=== PATIENT | female | born 1970 | race Caucasian/White ===

== ENCOUNTER 2017-01-04 11:13 | Outpatient (CLI) | payer BC ==
--- NOTE | 2017-01-04 13:15 | MMO ---
BILATERAL SCREENING MAMMOGRAM: DATE: 01/04/17 HISTORY: 46-year-old female for screening mammography. COMPARISON: 10/14/15, 10/07/14. FINDINGS: Bilateral MLO and CC views of the breasts show scattered fibroglandular breast tissue. There is no e vidence of suspicious mass, suspicious cluster of microcalcifications, or area of architectural dist ortion. There is focal asymmetric increased density in the upper outer aspect of the right breast, s table. Interpretation of this mammogram was performed with the assistance of computer-aided detection. IMPRESSION: BIRADS 2: Benign Finding(s) Annual screening mammography is recommended. POS: [facility]
== END 2017-01-04 11:14 | disposition home or self-care (01) ==
LOC: SCSMAMMO 11:13
PROVIDERS: ATTEND Obstetrics & Gynecology
DX: Z12.31 Encounter for screening mammogram for malignant neoplasm of breast (principal)
CPT/HCPCS: 77067; G0202

== ENCOUNTER 2018-03-15 15:59 | Outpatient (CLI) | payer OTHER ==
--- NOTE | 2018-03-15 18:45 | MRI ---
MRI CERVICAL SPINE NONCONTRAST: 03/15/18 HISTORY: Neck pain with radiculopathy. FINDINGS: There is straightening of the normal lordotic curvature. Vertebral body heights are maintained. Bone marrow signal is within normal limits. C2-3, C3-4, C4-5: Central canal and neural foramina are patent. C5-6: Small posterior central focal disc protrusion, contacting but not significantly compressing the right side of the spinal cord. No abnormal signal within the cord. Neural foramina are patent. C6-7, C7-T1: Central canal and neural foramina are patent. IMPRESSION: Small focal posterior disc protrusion at the C5-6 level without spinal cord or nerve root compression . POS: [facility]
== END 2018-03-15 16:00 | disposition home or self-care (01) ==
LOC: TBSIIMAG 15:59
PROVIDERS: ATTEND Chiropractor
DX: M50.122 Cervical disc disorder at C5-C6 level with radiculopathy (principal)
CPT/HCPCS: 72141

== ENCOUNTER 2018-09-20 11:35 | Outpatient (CLI) | payer OTHER ==
--- NOTE | 2018-09-20 13:45 | MMO ---
Bilateral MAMMO Bilat Screen [facility]. CLINICAL HISTORY: Patient is 47 years old and is seen for screening. The patient has the following family history of breast cancer: maternal aunt, malignant (generic). The patient has a history of bladder cancer at age 37. VIEWS: The views performed were: bilateral craniocaudal and bilateral mediolateral oblique. FILMS COMPARED: The present examination has been compared to prior imaging studies performed at [facility] on 10/07/2014, 10/14/2015 and 01/04/2017, and at [facility] on 10/08/2014. This study has been interpreted with the assistance of computer-aided detection. MAMMOGRAM FINDINGS: The breasts are heterogeneously dense, which could obscure a lesion on mammography. There are no suspicious masses, suspicious calcifications, or new areas of architectural distortion. IMPRESSION: THERE IS NO MAMMOGRAPHIC EVIDENCE OF MALIGNANCY. A ROUTINE FOLLOW-UP MAMMOGRAM IN 1 YEAR IS RECOMMENDED. ACR BI-RADS Category 1 - Negative MAMMOGRAPHY NOTE: 1. A negative mammogram report should not delay a biopsy if a dominant of clinically suspicious mass is present. 2. Approximately 10% to 15% of breast cancers are not detected by mammography. 3. Adenosis and dense breasts may obscure an underlying neoplasm.
== END 2018-09-20 11:36 | disposition home or self-care (01) ==
LOC: SCSMAMMO 11:35
PROVIDERS: ATTEND Obstetrics & Gynecology
DX: Z12.31 Encounter for screening mammogram for malignant neoplasm of breast (principal); Z80.3 Family history of malignant neoplasm of breast; Z85.51 Personal history of malignant neoplasm of bladder
CPT/HCPCS: 77067

== ENCOUNTER 2022-03-24 08:00 | Outpatient (CLI) | payer BC ==
[2022-03-24 09:18] LABS: Hemoglobin 13.4 g/dL (12.0-15.5); Mean Corpuscular HGB CONC 33.8 g/dL (32.0-36.0); Mean Corpuscular Hemoglobin 31.3 pg (27.0-33.0); Mean Corpuscular Volume 92.5 fl (81.6-98.3); Mean Platelet Volume 9.7 fl (7.4-10.4); Platelet Count 232 10x3/uL (150-450); RBC Distribution Width 14.2 % (11.5-14.5); Red Blood Cell (RBC) Count 4.28 10x6/uL (3.90-5.03); White Blood Cell (WBC) Count 6.4 10x3/uL (3.5-10.5)
[2022-03-24 09:42] LABS: INR-International Normal Ratio 0.9; PTT 24.8 sec (22.0-33.0); Prothrombin Time 9.9 sec (9.5-12.1)
[2022-03-24 09:45] LABS: Anion Gap 13 mmol/L (10-20); BUN (Urea Nitrogen) 14 mg/dL (7.0-18.7); Calc. Creatinine Clearance 0 mL/min (70-130); Carbon Dioxide 25 mmol/L (22-29); Chloride 105 mmol/L (98-107); Estimated GFR 93; Glucose 83 mg/dL (70-105); Potassium 4.4 mmol/L (3.5-5.1); Sodium 139 mmol/L (136-145)
== END 2022-03-24 08:01 | disposition home or self-care (01) ==
LOC: LABBT 08:00
PROVIDERS: ATTEND Urology
DX: Z01.818 Encounter for other preprocedural examination (principal); C67.9 Malignant neoplasm of bladder, unspecified
CPT/HCPCS: 80048; 85027; 85610; 85730; 87086; 93005; 93010

== ENCOUNTER 2022-03-30 10:25 | Day surgery (SDC) | payer BC ==
[2022-03-29 10:56] VITALS: BMI 27.4
[~2022-03-30 10:25] MED LIST: mitoMYcin 40 MG in Sodium Chloride 0.9% 40 ML I-VESIC SCH
[2022-03-30] MEDS ORDERED: Iopamidol 30 ML ONE (13:48)
[2022-03-30] MEDS ORDERED: Famotidine/PF 20 mg/2ml Vial ONE (13:56)
[2022-03-30] MEDS ORDERED: Fentanyl 100 MCG/2 ML VIAL ONE (13:56)
[2022-03-30] MEDS ORDERED: Sodium Chloride 0.9% 100 ML ONE (13:59)
[2022-03-30] MEDS ORDERED: CEFAZOLIN 2 GM VIAL ONE (13:59)
[2022-03-30] MEDS ORDERED: Ondansetron PF 4 MG/2 ML Vial ONE (14:05)
[2022-03-30] MEDS ORDERED: Metoclopramide HCl 10 MG/2 ML VIAL ONE (14:05)
[2022-03-30] MEDS ORDERED: Lidocaine 1% PF 5 ML VIAL ONE (14:05)
[2022-03-30] MEDS ORDERED: PROPOFOL 200 MG/20 ML VIAL ONE (14:05)
[2022-03-30] MEDS ORDERED: Dexamethasone 20 MG/5 ML VIAL ONE (14:05)
== END 2022-03-30 17:25 | disposition home or self-care (01) ==
LOC: SDC 10:25
PROVIDERS: ATTEND Urology
PROC: 0T5B8ZZ Destruction of Bladder, Via Natural or Artificial Opening Endoscopic (ICD-10-PCS; principal; 2022-03-30)
PROC: 3E0K805 Introduction of Other Antineoplastic into Genitourinary Tract, Via Natural or Artificial Opening Endoscopic (ICD-10-PCS; principal; 2022-03-30)
DX: C67.0 Malignant neoplasm of trigone of bladder (principal); N30.20 Other chronic cystitis without hematuria; K21.9 Gastro-esophageal reflux disease without esophagitis; I10 Essential (primary) hypertension; Q64.8 Other specified congenital malformations of urinary system; Z79.899 Other long term (current) drug therapy; Z88.7 Allergy status to serum and vaccine; Z91.040 Latex allergy status; Z91.048 Other nonmedicinal substance allergy status
CPT/HCPCS: 74420; 88305; 88342; J1100; J2405; J2704; J2765; J3010; J3490; J9280; Q9967; S0028

== ENCOUNTER 2022-05-11 10:02 | Day surgery (SDC) | payer BC ==
[2022-05-10 14:17] VITALS: BMI 27.1
[2022-05-11] MEDS ORDERED: CEFAZOLIN 2 GM VIAL ONE (11:44)
[2022-05-11] MEDS ORDERED: Sodium Chloride 0.9% 100 ML ONE (11:44)
[2022-05-11] MEDS ORDERED: fentaNYL PF 100 MCG/2 ML SYRINGE ONE (11:53)
[2022-05-11] MEDS ORDERED: mitoMYcin 40 MG in Sodium Chloride 0.9% 40 ML I-VESIC SCH (12:00)
[2022-05-11] MEDS ORDERED: Rocuronium Bromide 10 MG/ML (10ML VIAL) ONE (12:08)
[2022-05-11] MEDS ORDERED: Lidocaine 1% PF 5 ML VIAL ONE (12:08)
[2022-05-11] MEDS ORDERED: Ondansetron PF 4 MG/2 ML Vial ONE (12:08)
[2022-05-11] MEDS ORDERED: PROPOFOL 200 MG/20 ML VIAL ONE (12:08)
[2022-05-11] MEDS ORDERED: Succinylcholine Chloride 100 MG/5 ML SYRINGE FS ONE (12:08)
[2022-05-11] MEDS ORDERED: Dexamethasone 20 MG/5 ML VIAL ONE (12:08)
[2022-05-11] MEDS ORDERED: SUGAMMADEX SODIUM 200 MG/2 ML VIAL ONE (12:35)
== END 2022-05-11 14:10 | disposition home or self-care (01) ==
LOC: SDC 10:02
PROVIDERS: ATTEND Urology
DX: C67.9 Malignant neoplasm of bladder, unspecified (principal); J38.2 Nodules of vocal cords; K21.9 Gastro-esophageal reflux disease without esophagitis; I10 Essential (primary) hypertension; Z79.899 Other long term (current) drug therapy; Z88.7 Allergy status to serum and vaccine; Z91.040 Latex allergy status; Z91.048 Other nonmedicinal substance allergy status
CPT/HCPCS: 88305; J1100; J2405; J2704; J3490; J9280